=== PATIENT | female | born 1975 | race Caucasian/White ===

== ENCOUNTER → 2021-02-25 | Outpatient (CLI) | payer MEDICARE ==
[2021-02-25 16:56] LABS: BASOPHILS ABSOLUTE AUTO 0.06 K/mm3 (0.00-0.23); BASOPHILS PERCENT AUTO 1 % (0-2); EOSINOPHILS ABSOLUTE AUTO 0.03 K/mm3 (0.00-0.68); EOSINOPHILS PERCENT AUTO 0 % (0-6); Hematocrit 49.5 % (33.0-51.0); Hemoglobin 16.8 g/dL (11.5-16.0); IMMATURE GRAN ABSOLUTE AUTO 0.04 K/mm3 (0.00-0.10); IMMATURE GRAN PERCENT AUTO 1 % (0-1); LYMPHOCYTES ABSOLUTE AUTO 0.62 K/mm3 (0.84-5.20); LYMPHOCYTES PERCENT AUTO 8 % (21-46); MONOCYTES ABSOLUTE AUTO 0.26 K/mm3 (0.16-1.47); MONOCYTES PERCENT AUTO 3 % (4-13); Mean Corpuscular HGB 34.3 pg (26.0-34.0); Mean Corpuscular HGB Conc 33.9 g/dL (31.5-36.5); Mean Corpuscular Volume 101 fL (80-100); Mean Platelet Volume 9.8 fL (9.1-12.4); NEUTROPHILS ABSOLUTE AUTO 6.88 K/mm3 (1.96-9.15); NEUTROPHILS PERCENT AUTO 87 % (41-73); Platelet Count 155 K/mm3 (150-400); RDW Coefficient Variation 14.1 % (11.7-14.2); RDW Standard Deviation 51.9 fL (35.1-46.3); White Blood Cell Count 7.89 K/mm3 (4.00-11.30)
[2021-02-25 17:06] LABS: Albumin, Blood 3.8 g/dL (3.4-5.0); Albumin/Globulin Ratio 0.8 (0.8-1.8); Bilirubin, Total 0.5 mg/dL (0.1-1.0); Calcium, Blood 9.4 mg/dL (8.5-10.1); Creatinine, Blood 1.42 mg/dL (0.40-1.00); Globulin, Blood 4.8 g/dL (2.2-4.0); Potassium, Blood 4.3 mmol/L (3.5-5.5); Total Protein, Blood 8.6 g/dL (6.4-8.2)
== END | disposition home or self-care (01) ==
LOC: LAB 16:52 → LAB SHORT 16:52
PROVIDERS: Physician Assistant
DX: R10.11 Right upper quadrant pain (principal); R31.9 Hematuria, unspecified
CPT/HCPCS: 80053; 83690; 85025; 87086

== ENCOUNTER 2024-01-17 13:23 | Observation (INO) | payer OTHER ==
[2024-01-17] VITALS (14 sets, daily range): BP systolic 110–133; BP diastolic 47–89
[~2024-01-17] VITALS: Ht 157.5 cm; Wt 90.7 kg
[2024-01-17] MEDS ORDERED: Lactated Ringer's 1,000 ML IV SCH ×3 (14:55→17:35)
[2024-01-17] MEDS ORDERED: Bupivacaine 0.5% HCl 5 MG/ML 30MLVIAL ONE (15:16)
[2024-01-17] MEDS ORDERED: Ondansetron HCl 2 MG / ML 2ML Vial IV PRN (15:40)
[2024-01-17] MEDS ORDERED: FentaNYL Citrate 50 MCG/ML 2 ML Injection ONE ×2 (15:42→16:49)
[2024-01-17] MEDS ORDERED: propofoL 20 ML IV ONE (15:42)
[2024-01-17] MEDS ORDERED: Rocuronium Bromide 10 MG/ML 5ML Injection IV ONE (15:43)
[2024-01-17] MEDS ORDERED: HYDROcodone 5-APAP 325 TAB PO PRN (15:45)
[2024-01-17] MEDS ORDERED: FentaNYL Citrate 50 MCG/ML 2 ML Injection IV PRN (15:45)
[2024-01-17] MEDS ORDERED: CeFAZolin Sodium 2,000 MG in NS 100 ML IV SCH (15:50)
[2024-01-17] MEDS ORDERED: Dexamethasone Sod Phos 10 MG/ML 1ML VIAL ONE (15:55)
[2024-01-17] MEDS ORDERED: Phenylephrine HCl 100 MCG/ML-NS 10MLSYR (1MG/10ML) ONE (16:24)
[2024-01-17] MEDS ORDERED: Ondansetron HCl 2 MG / ML 2ML Vial ONE (16:40)
[2024-01-17] MEDS ORDERED: Sugammadex Sodium 200 MG/2ML SDV (100 MG/ML) ONE (16:40)
--- NOTE | 2024-01-17 16:40 | NUR ---
01/17/24 1640 Brandy Villalba [address] POURED ONTO STERILE FIELD FOR USE DURING CHOLANGIOGRAM
--- NOTE | 2024-01-17 17:24 | NUR ---
"Spiritual care | Call from the ED Pt. is awake in bed and is very alert when she welcomes my visit. Pts. mother and aunt are at bedside. Pt. is very pleasant, as the Pt. verbalizes that she has Down Syndrome and would like this marble cutter operator to pray for her. Staff are concerned about the mother at bedside who is elderly and shows signs of occassional confusion. Prayed with Pt. and family. Escorted mother to Pre-op and the surical waiting area. Contacted the pts. operations coordinator while she was in surgery at her request. Sat with Pts mother until pts. pastors arrived. Pts. mother and pasters verbalized gratitude for the spiritual care visit. Will remain available to the Pt. and family."
[2024-01-17] MEDS ORDERED: Docusate Sodium 100 MG Cap PO SCH (21:00)
[2024-01-18 04:12] VITALS: BP 108/63
--- NOTE | 2024-01-18 05:03 | NUR ---
SHIFT SUMMARY POD 1 LAP NELSON PT ABLE TO SLEEP T/O SHIFT. PT STATES PAIN IS MANAGEABLE. PT ABLE TO GET OOB WITH 1P ASST, TO THE BSC. PT TOLERATING PO INTAKE, VOIDING. PT HAS NOT PASSED ANY GAS YET. X4 LAP SITES, UMBILICAL SITES REINFORCED WITH GAUZE AND TEG DUE TO SOME LEAKING. VSS. NO OTHER CONCERNS AT THIS TIME, CALL LIGHT WITHIN REACH
[2024-01-18 07:01] VITALS: BP 116/60
--- NOTE | 2024-01-18 09:49 | NUR ---
Pt. is awake in bed surrounded by friends and family. Pt. is pleasant and welcomes my visit. Facilitate an update of the pts. overnight progress. Pts. door trimmer is also present. Pt. displays evidence of juan antonio. Prayed for Pt. Pt. and family verbalize gratitude for the spiritual care visit.
[2024-01-18] MEDS ORDERED: Acetaminophen 325 MG TABLET PO PRN (10:15)
[2024-01-18] MEDS ORDERED: Norco 5-325 Ta1 EACH PO (12:40)
--- NOTE | 2024-01-18 13:26 | NUR ---
DISCHARGE NOTE: PATIENTS MOTHER AND CAREGIVER AT BEDSIDE DURING DISCHARGE INSTRUCTIONS. PATIENT AND FAMILY VERBALIZED UNDERSTANDING. PLANS TO GO HOME WHERE SHE LIVES WITH HER MOTHER. PT TAKEN OUT TO CAREGIVERS CAR VIA WHEELCHAIR. VSS. A&OX4. PT STATES PAIN IS TOLERABLE AT THIS TIME.
== END 2024-01-18 13:29 | disposition home or self-care (01) ==
LOC: ER 13:23 → SURS 13:24
PROVIDERS: ADMIT Surgery
PROC: 0FT44ZZ Resection of Gallbladder, Percutaneous Endoscopic Approach (ICD-10-PCS; principal; 2024-01-17 13:15)
DX: K80.00 Calculus of gallbladder with acute cholecystitis without obstruction (principal); R10.11 Right upper quadrant pain; K80.20 Calculus of gallbladder without cholecystitis without obstruction; K82.8 Other specified diseases of gallbladder; R16.0 Hepatomegaly, not elsewhere classified
CPT/HCPCS: 74300; 76705; 80053; 83690; 85025; 88304; 99284; A9270; C1729; J0690; J1100; J2371; J2405; J2704; J3010; J7120

== ENCOUNTER → 2024-01-17 | Outpatient (CLI) | payer MEDICARE, OTHER ==
[~2024-01-17] MED LIST: Norco 5-325 Ta1 EACH PO
[2024-01-17 11:56] LABS: BASOPHILS ABSOLUTE AUTO 0.06 K/mm3 (0.00-0.23); BASOPHILS PERCENT AUTO 0 % (0-2); EOSINOPHILS PERCENT AUTO 0 % (0-6); Hematocrit 49.6 % (33.0-51.0); Hemoglobin 16.7 g/dL (11.5-16.0); IMMATURE GRAN ABSOLUTE AUTO 0.07 K/mm3 (0.00-0.10); IMMATURE GRAN PERCENT AUTO 1 % (0-1); LYMPHOCYTES ABSOLUTE AUTO 0.69 K/mm3 (0.84-5.20); LYMPHOCYTES PERCENT AUTO 5 % (21-46); MONOCYTES ABSOLUTE AUTO 0.38 K/mm3 (0.16-1.47); MONOCYTES PERCENT AUTO 3 % (4-13); Mean Corpuscular HGB 33.7 pg (26.0-34.0); Mean Corpuscular HGB Conc 33.7 g/dL (31.5-36.5); Mean Corpuscular Volume 100 fL (80-100); Mean Platelet Volume 9.6 fL (9.1-12.4); NEUTROPHILS ABSOLUTE AUTO 13.24 K/mm3 (1.96-9.15); NEUTROPHILS PERCENT AUTO 92 % (41-73); Platelet Count 189 K/mm3 (150-400); RDW Coefficient Variation 15.2 % (11.7-14.2); RDW Standard Deviation 55.7 fL (35.1-46.3); Red Blood Cell Count 4.96 M/mm3 (3.80-5.20); White Blood Cell Count 14.44 K/mm3 (4.00-11.30)
[2024-01-17 12:11] LABS: Albumin, Blood 3.3 g/dL (3.4-5.0); Albumin/Globulin Ratio 0.7 (0.8-1.8); Bilirubin, Total 0.6 mg/dL (0.1-1.0); Bun/Creatinine Ratio 11.5 (12.0-20.0); Calcium, Blood 9.1 mg/dL (8.5-10.1); Creatinine, Blood 1.48 mg/dL (0.40-1.00); Potassium, Blood 4.3 mmol/L (3.5-5.5); Total Protein, Blood 8.3 g/dL (6.4-8.2)
== END | disposition home or self-care (01) ==
LOC: LAB 11:51 → LAB SHORT 11:51
PROVIDERS: Chiropractor
DX: R10.11 Right upper quadrant pain (principal)
CPT/HCPCS: 80053; 83690; 85025